=== PATIENT | female | born 1965 | race Caucasian/White ===

== ENCOUNTER → 2022-02-12 11:12 | Outpatient (CLI) | payer BC, SELFPAY ==
--- NOTE | ~2022-02-12 | CT_ITS ---
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 The dose-length product (DLP) was 435.22 mGy-cm. Automated exposure control and iterative reconstruction technique were employed. COMPARISON: None FINDINGS: CHEST CT: The lungs are free of acute opacities. There is no pleural effusion or pneumothorax. There is mild de pendent atelectasis. No pathologically enlarged thoracic lymph nodes are identified. The heart size i s normal. Calcified coronary artery atherosclerosis is noted. ABDOMEN/PELVIS CT: The liver, spleen, pancreas, gallbladder, and adrenal glands are normal. The kidneys are unremarkable . No pathologically enlarged abdominal or pelvic lymph nodes are identified. There is no free intrape ritoneal gas or evidence of bowel obstruction. Colonic diverticulosis is present without evidence of diverticulitis. The appendix is normal. IMPRESSION: 1. No evidence of metastatic disease. Reviewed, dictated and finalized at location A.
== END ==
DX: C69.41 Malignant neoplasm of right ciliary body (principal)
CPT/HCPCS: 71260; 74177; Q9967

== ENCOUNTER → 2022-10-20 10:09 | Outpatient (CLI) | payer BC, SELFPAY ==
--- NOTE | ~2022-10-20 | CT_ITS ---
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 The dose-length product (DLP) was 425.44 mGy-cm. Automated exposure control and iterative reconstruction technique were employed. COMPARISON: 02/12/2022 FINDINGS: CHEST CT: There is a new 9 mm x 5 mm nodule abutting the mediastinum has a right upper lobe on image 59. No ple ural effusion or pneumothorax. Mild dependent atelectasis is noted. Right paratracheal, precarinal, a nd right hilar lymph nodes are not pathologically enlarged but demonstrate increase in size since the comparison examination. The heart size is normal. ABDOMEN/PELVIS CT: The liver is diffusely low in attenuation when compared with the spleen, consistent with hepatic stea tosis. The spleen, pancreas, gallbladder, and adrenal glands are normal. The kidneys are unremarkable . No pathologically enlarged abdominal or pelvic lymph nodes are identified. There is no free intrape ritoneal gas or evidence of bowel obstruction. A moderate volume of colonic stool is present. Colonic diverticulosis is present without evidence of diverticulitis. IMPRESSION: 1. New indeterminate nodule of the right upper lobe. 2. Enlarging, but not pathologically enlarged, mediastinal and right hilar lymph nodes. Attention on follow-up examination is recommended. Reviewed, dictated and finalized at location B. RENTAL TECHNICIAN IMPRESSION: 1. New indeterminate nodule of the right upper lobe. 2. Enlarging, but not pathologically enlarged, mediastinal and right hilar lymp h nodes. Attention on follow-up examination is recommended.
== END ==
DX: C69.41 Malignant neoplasm of right ciliary body (principal)
CPT/HCPCS: 71260; 74177; Q9967

== ENCOUNTER → 2023-01-12 09:05 | Outpatient (CLI) | payer BC, SELFPAY ==
--- NOTE | ~2023-01-12 | CT_ITS ---
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 TECHNIQUE: Computed tomography (CT) of the chest, abdomen, and pelvis was performed with 100 mL Omnip aque 350 intravenous contrast. Automated exposure control and iterative reconstruction technique were employed. The dose-length product was 434.58 mGy-cm. COMPARISON: CT 10/20/2022 FINDINGS: CHEST CT: There is mild scarring at the lung apices. There is an 8 mm nodule in anterior segment right upper lo be abutting the mediastinum. No pleural effusion. There is a 4 mm nodule in the thyroid, likely not c linically significant. The heart size is normal. No pericardial effusion. There are coronary artery c alcifications. There are no pathologically enlarged lymph nodes. There is mild thoracic spondylosis. There is mild chronic anterior wedging of T7 vertebral body. ABDOMEN/PELVIS CT: The liver, gallbladder, spleen, pancreas, adrenal glands, and kidneys are normal. There are no dilate d loops of bowel. The appendix is normal. There are no pathologically enlarged lymph nodes. There is no free intraperitoneal fluid. There is mild lumbar spondylosis. IMPRESSION: 1. 8 mm right upper lobe pulmonary nodule, stable from 10/20/2022 and new from 02/12/2022. This finding i s suspicious for primary bronchogenic carcinoma or metastatic disease. This finding abuts the mediast inum is not amenable to CT-guided biopsy. Consider noncontrast chest CT in 6 months. Reviewed, dictated and finalized at location D. IMPRESSION: 1. 8 mm right upper lobe pulmonary nodule, stable from 10/20/2022 and new from 02/12/2022. This finding is suspicious for primary bronchogenic carcinoma or metast atic disease. This finding abuts the mediastinum is not amenable to CT-guided b iopsy. Consider noncontrast chest CT in 6 months.
== END ==
DX: C69.41 Malignant neoplasm of right ciliary body (principal)
CPT/HCPCS: 71260; 74177; Q9967